=== PATIENT | female | born 1970 | race Caucasian/White ===

== ENCOUNTER 2018-08-01 08:34 | Emergency (ER) | payer OTHER ==
[~2018-08-01] VITALS: Ht 157.5 cm; Wt 99.4 kg
[2018-08-01 08:43] VITALS: BP 160/94
== END 2018-08-01 11:44 | disposition home or self-care (01) ==
LOC: ED 11:40
DX: S16.1XXA Strain of muscle, fascia and tendon at neck level, initial encounter (principal); S20.219A Contusion of unspecified front wall of thorax, initial encounter; M54.6 Pain in thoracic spine; E11.9 Type 2 diabetes mellitus without complications; J45.909 Unspecified asthma, uncomplicated; V49.49XA Driver injured in collision with other motor vehicles in traffic accident, initial encounter; Y93.89 Activity, other specified; Y92.89 Other specified places as the place of occurrence of the external cause; Y99.8 Other external cause status
CPT/HCPCS: 71046; 72072; 72125; 99284